=== PATIENT | male | born 1960 | race Caucasian/White ===

== ENCOUNTER 2018-08-14 12:47 | Inpatient (IN) | payer MEDICARE, OTHER ==
[2018-08-14] MEDS: SODIUM CHLORIDE 0.9% FLUSH 10 ML SOL IV PRN (12:50)
[2018-08-14] MEDS ORDERED: SODIUM CHLORIDE 0.9% 1000ML 1,000 ML IV ONE ×2 (12:59→14:10)
[2018-08-14] MEDS ORDERED: ONDANSETRON HCL 4 MG/2 ML SOL ONE (13:06)
[2018-08-14] MEDS ORDERED: ONDANSETRON HCL 4 MG/2 ML SOL IV ONE (13:08)
[2018-08-14 13:40] LABS: BASOPHILS % (AUTO) 1 % (0-3); EOSINOPHILS % (AUTO) 0 % (0-9); HEMATOCRIT 53 % (39-53); LYMPHOCYTES % (AUTO) 8.1 % (10-50); MEAN CORPUSCULAR HEMOGLOBIN 29.3 pg (27.0-32.0); MEAN CORPUSCULAR HGB CONC 31.9 gm/dl (32.0-36.0); MEAN CORPUSCULAR VOLUME 92 fL (80-100); NEUTROPHILS % (AUTO) 88.3 % (37-80)
[2018-08-14 13:51] LABS: ESTIMATED AVE GLU 355 mg/dl (91-125); HEMOGLOBIN A1C > 14.0 % (4.8-6.0)
[2018-08-14 13:54] LABS: ALBUMIN 3.9 gm/dl (3.4-5.0); ALKALINE PHOSPHATASE 120 IU/L (46-116); ALT 45 IU/L (14-63); AST 24 IU/L (15-37); BILIRUBIN,TOTAL 0.5 mg/dl (0.2-1.0); BLOOD UREA NITROGEN 25 mg/dl (7-18); CALCIUM 9.5 mg/dl (8.5-10.1); CARBON DIOXIDE 10.9 mEq/L (21-32); CHLORIDE 87 mMol/L (98-107); MAGNESIUM 1.9 mg/dl (1.8-2.4); POTASSIUM 5.5 mMol/L (3.5-5.1); TOTAL PROTEIN 8.3 gm/dl (6.4-8.2)
[2018-08-14 13:56] LABS: GLUCOSE 583 mg/dl (74-106); SODIUM 123 mMol/L (136-145)
[2018-08-14] MEDS ORDERED: INSULIN HUMAN REGULAR 100 U/ML SOL IV ONE (13:59)
[2018-08-14] MEDS ORDERED: INSULIN HUMAN REGULAR 100 U/ML SOL ONE (14:03)
[2018-08-14 14:13] LABS: APPEARANCE,URINE Clear; BILIRUBIN,URINE 1+ (NEGATIVE); COLOR,URINE Yellow; GLUCOSE, URINE (UA) 2+ (NEGATIVE); KETONES,URINE 4+ (NEGATIVE); LEUKOCYTE ESTERASE ,URINE NEGATIVE (NEGATIVE); NITRATE,URINE NEGATIVE (NEGATIVE); OCCULT BLOOD,URINE TRACE LYSED (NEG-TRACE); UROBILINOGEN,URINE 0.2 (0.2-1.0 EU)
[2018-08-14 14:21] LABS: ICTOTEST,URINE NEGATIVE (NEGATIVE)
[2018-08-14 14:36] LABS: BACTERIA TRACE (< 1+); CRYSTALS NEGATIVE (0-3 AVE/HPF); EPITHELIAL CELLS NEGATIVE (SQUAMOUS); RBC,URINE NEGATIVE (0-3AV/HPF); WBC,URINE NEGATIVE (0-5AV/HPF)
[2018-08-14] MEDS ORDERED: POTASSIUM CHLORIDE 2 MEQ/ML SOL IV ONE ×2 (17:33→19:42)
[2018-08-14] MEDS: INSULIN HUMAN REGULAR 100 U/ML SOL SC SCH ×3 (18:26→21:46)
[2018-08-14] MEDS: ONDANSETRON 4 MG ODT BU PRN (18:26)
[2018-08-14] MEDS: SODIUM CHLORIDE/KCL 20MEQ 1,000 ML IV SCH ×2 (18:27→19:54)
[2018-08-14 20:54] LABS: CARBON DIOXIDE 8.6 mEq/L (21-32); CREATININE 1.26 mg/dl (0.80-1.30)
[2018-08-14 20:56] LABS: POTASSIUM 6.1 mMol/L (3.5-5.1)
[2018-08-14] MEDS: SODIUM CHLORIDE 0.9% 1000ML 1,000 ML IV SCH (21:20)
[2018-08-14] MEDS ORDERED: INSULIN HUMAN REGULAR 100 U/ML SOL SC ONE (23:49)
[2018-08-15] MEDS: ONDANSETRON 4 MG ODT BU PRN ×5 (00:13→23:00)
[2018-08-15] MEDS ORDERED: INSULIN HUMAN REGULAR 100 U/ML SOL SC ONE ×2 (02:04→04:22)
[2018-08-15] MEDS: SODIUM CHLORIDE 0.9% 1000ML 1,000 ML IV SCH ×2 (02:24→10:00)
[2018-08-15] MEDS: LEVOTHYROXINE SODIUM 50 MCG TAB PO SCH (06:45)
[2018-08-15 07:38] LABS: HEMATOCRIT 50 % (39-53); HEMOGLOBIN 16.4 gm/dl (13.5-17.7); MEAN CORPUSCULAR HEMOGLOBIN 29.7 pg (27.0-32.0); MEAN CORPUSCULAR HGB CONC 32.5 gm/dl (32.0-36.0); MEAN CORPUSCULAR VOLUME 91 fL (80-100)
[2018-08-15 07:43] LABS: CALCIUM 7.4 mg/dl (8.5-10.1); CARBON DIOXIDE 11.3 mEq/L (21-32); CREATININE 1.15 mg/dl (0.80-1.30); POTASSIUM 4.3 mMol/L (3.5-5.1); THYROID STIMULATING HORMONE 0.633 uIU/ml (0.358-3.740)
[2018-08-15 07:55] LABS: BAND NEUTROPHILS % (MANUAL) 9 %; BASOPHILS % (MANUAL) 0 % (0-3); EOSINOPHILS % (MANUAL) 0 % (0-9); LYMPHOCYTES % (MANUAL) 14 % (10-50); MONOCYTES % (MANUAL) 2 % (0-12); NEUTROPHILS % (MANUAL) 75 % (37-80); NORMAL RBCS PRESENT
[2018-08-15] MEDS ORDERED: DEXTROSE/SALINE 0.45% 1,000 ML IV SCH (08:15)
[2018-08-15 08:36] LABS: MAGNESIUM 1.9 mg/dl (1.8-2.4)
[2018-08-15 08:49] LABS: ABG PH 7.23 (7.35-7.45)
[2018-08-15] MEDS ORDERED: ASPIRIN EC 81 MG PO SCH (09:00)
[2018-08-15] MEDS ORDERED: SODIUM CHLORIDE 0.9% 500 ML 500 ML IV ONE (09:22)
[2018-08-15] MEDS ORDERED: INSULIN HUMAN REGULAR 100 U/ML SOL ONE (09:22)
[2018-08-15] MEDS: INSULIN HUMAN REGULAR 500 U in SODIUM CHLORIDE 0.9% 500 ML 500 ML IV SCH (09:41)
[2018-08-15] MEDS: PROMETHAZINE HYDROCHLORIDE 25 MG/ML SOL IV PRN ×3 (09:59→20:27)
[2018-08-15] MEDS: SODIUM CHLORIDE 0.9% FLUSH 10 ML SOL IV PRN ×2 (09:59→16:20)
[2018-08-15] MEDS: LISINOPRIL 20 MG TAB PO SCH (10:04)
[2018-08-15 10:55] LABS: CALCIUM 7.3 mg/dl (8.5-10.1); CARBON DIOXIDE 10.3 mEq/L (21-32); POTASSIUM 3.9 mMol/L (3.5-5.1)
[2018-08-15] MEDS ORDERED: SODIUM CHLORIDE/KCL 20MEQ 1,000 ML IV SCH (11:30)
[2018-08-15] MEDS ORDERED: SODIUM CHLORIDE/KCL 20MEQ 1,000 ML IV ONE (12:14)
[2018-08-15 12:45] LABS: CALCIUM 7.6 mg/dl (8.5-10.1); CARBON DIOXIDE 10.5 mEq/L (21-32); CREATININE 0.98 mg/dl (0.80-1.30); POTASSIUM 3.6 mMol/L (3.5-5.1)
[2018-08-15] MEDS ORDERED: DEXTROSE/SALINE 0.45/KCL 20MEQ 1,000 ML/1,000 ML SOL IV SCH (13:15)
[2018-08-15 15:02] LABS: CALCIUM 7.5 mg/dl (8.5-10.1); CARBON DIOXIDE 14.1 mEq/L (21-32); CREATININE 0.92 mg/dl (0.80-1.30)
[2018-08-15 16:40] LABS: CALCIUM 7.3 mg/dl (8.5-10.1); CREATININE 0.9 mg/dl (0.80-1.30)
[2018-08-15] MEDS ORDERED: CALCIUM GLUCONATE 10% 1,000 MG in SODIUM CHLORIDE 0.9% 100 ML 100 ML IV ONE (17:19)
[2018-08-15] MEDS ORDERED: SODIUM CHLORIDE 0.9% 100 ML 100 ML IV ONE (17:57)
[2018-08-15] MEDS ORDERED: CALCIUM GLUCONATE 10% 100 MG/ML SOL IV ONE (17:57)
[2018-08-15] MEDS ORDERED: POTASSIUM CHLORIDE 2 MEQ/ML SOL IV ONE ×2 (17:59→22:53)
[2018-08-15] MEDS: DEXTROSE/SALINE 0.9% 1,000 ML with POTASSIUM CHLORIDE 2 MEQ/ML 20 MEQ IV SCH ×2 (18:17→22:59)
[2018-08-15 18:47] LABS: CALCIUM 7.4 mg/dl (8.5-10.1); CARBON DIOXIDE 14.6 mEq/L (21-32); CREATININE 0.91 mg/dl (0.80-1.30); MAGNESIUM 1.7 mg/dl (1.8-2.4); POTASSIUM 3.9 mMol/L (3.5-5.1)
[2018-08-15 20:34] LABS: CALCIUM 7.4 mg/dl (8.5-10.1); CARBON DIOXIDE 14.7 mEq/L (21-32); CREATININE 0.89 mg/dl (0.80-1.30); POTASSIUM 3.8 mMol/L (3.5-5.1)
[2018-08-15 22:00] LABS: APPEARANCE,URINE Clear; BILIRUBIN,URINE 1+ (NEGATIVE); COLOR,URINE Yellow; GLUCOSE, URINE (UA) 2+ (NEGATIVE); KETONES,URINE 4+ (NEGATIVE); LEUKOCYTE ESTERASE ,URINE NEGATIVE (NEGATIVE); NITRATE,URINE NEGATIVE (NEGATIVE); OCCULT BLOOD,URINE NEGATIVE (NEG-TRACE); PH,URINE 5.5; UROBILINOGEN,URINE 0.2 (0.2-1.0 EU)
[2018-08-15 22:13] LABS: ICTOTEST,URINE NEGATIVE (NEGATIVE); RBC,URINE NEG (0-3AV/HPF); WBC,URINE 0-1 (0-5AV/HPF)
[2018-08-15 22:14] LABS: BACTERIA NEGATIVE (< 1+); CRYSTALS NEGATIVE (0-3 AVE/HPF); EPITHELIAL CELLS NEGATIVE (SQUAMOUS)
[2018-08-15 22:47] LABS: ALBUMIN 2.5 gm/dl (3.4-5.0); BILIRUBIN,DIRECT 0.1 mg/dl (0.0-0.2); BILIRUBIN,TOTAL 0.2 mg/dl (0.2-1.0); CALCIUM 7.5 mg/dl (8.5-10.1); CREATININE 0.85 mg/dl (0.80-1.30); POTASSIUM 3.3 mMol/L (3.5-5.1); TOTAL PROTEIN 5.6 gm/dl (6.4-8.2)
[2018-08-15 22:49] LABS: CARBON DIOXIDE 15.4 mEq/L (21-32)
[2018-08-15] MEDS ORDERED: METOCLOPRAMIDE HYDROCHLORIDE 5 MG/ML SOL IV ONE (23:33)
[2018-08-16] MEDS ORDERED: PIPERACILLIN/TAZOBACT 3.375 GM 3.375 GM in SODIUM CHLORIDE 0.9% 100 ML 100 ML IV ONE (01:00)
[2018-08-16] MEDS ORDERED: PIPERACILLIN/TAZOBACT 3.375 GM PDS IV ONE (01:16)
[2018-08-16] MEDS ORDERED: SODIUM CHLORIDE 0.9% 100 ML 100 ML IV ONE (01:17)
[2018-08-16] MEDS: PROMETHAZINE HYDROCHLORIDE 25 MG/ML SOL IV PRN ×4 (01:33→14:00)
[2018-08-16 02:34] LABS: CREATININE 0.89 mg/dl (0.80-1.30); POTASSIUM 3.6 mMol/L (3.5-5.1)
[2018-08-16 02:38] LABS: CARBON DIOXIDE 15.4 mEq/L (21-32)
[2018-08-16] MEDS ORDERED: POTASSIUM CHLORIDE 2 MEQ/ML SOL IV ONE (04:30)
[2018-08-16] MEDS: DEXTROSE/SALINE 0.9% 1,000 ML with POTASSIUM CHLORIDE 2 MEQ/ML 20 MEQ IV SCH (04:34)
[2018-08-16] MEDS: ONDANSETRON 4 MG ODT BU PRN (04:35)
[2018-08-16 04:39] LABS: CALCIUM 6.8 mg/dl (8.5-10.1); CARBON DIOXIDE 15.7 mEq/L (21-32); CREATININE 0.87 mg/dl (0.80-1.30); POTASSIUM 3.8 mMol/L (3.5-5.1)
[2018-08-16] MEDS ORDERED: INSULIN HUMAN REGULAR 100 U/ML SOL ONE (05:35)
[2018-08-16] MEDS: LEVOTHYROXINE SODIUM 50 MCG TAB PO SCH (06:22)
[2018-08-16] MEDS: INSULIN HUMAN REGULAR 500 U in SODIUM CHLORIDE 0.9% 500 ML 500 ML IV SCH (06:27)
[2018-08-16 06:57] LABS: BASOPHILS % (AUTO) 1 % (0-3); EOSINOPHILS % (AUTO) 0 % (0-9); HEMATOCRIT 48 % (39-53); HEMOGLOBIN 15.7 gm/dl (13.5-17.7); LYMPHOCYTES % (AUTO) 3.9 % (10-50); MEAN CORPUSCULAR HEMOGLOBIN 29.7 pg (27.0-32.0); MEAN CORPUSCULAR VOLUME 90 fL (80-100); MONOCYTES % (AUTO) 6.6 % (0-12); NEUTROPHILS % (AUTO) 88.9 % (37-80)
[2018-08-16 07:06] LABS: ESTIMATED AVE GLU > 355 mg/dl (91-125); HEMOGLOBIN A1C > 14.0 % (4.8-6.0)
[2018-08-16 07:13] LABS: ALBUMIN 2.3 gm/dl (3.4-5.0); ALKALINE PHOSPHATASE 79 IU/L (46-116); ALT 36 IU/L (14-63); AST 30 IU/L (15-37); BILIRUBIN,TOTAL 0.2 mg/dl (0.2-1.0); BLOOD UREA NITROGEN 23 mg/dl (7-18); CALCIUM 6.8 mg/dl (8.5-10.1); CHLORIDE 105 mMol/L (98-107); CHOL/HDL RATIO 10.3 (2.8-6.4); CHOLESTEROL 226 mg/dl (120-200); CREATININE 0.91 mg/dl (0.80-1.30); GLUCOSE 264 mg/dl (74-106); HDL CHOLESTEROL 22 mg/dl (40-60); POTASSIUM 3.7 mMol/L (3.5-5.1); SODIUM 132 mMol/L (136-145)
[2018-08-16 07:18] LABS: CARBON DIOXIDE 13.1 mEq/L (21-32)
[2018-08-16 08:58] LABS: ABG PH 7.31 (7.35-7.45)
[2018-08-16] MEDS ORDERED: PROMETHAZINE HYDROCHLORIDE 25 MG/ML SOL ONE (09:44)
[2018-08-16] MEDS: LISINOPRIL 20 MG TAB PO SCH (09:56)
[2018-08-16] MEDS ORDERED: SODIUM CHLORIDE 0.9% 1000ML 1,000 ML IV SCH (10:00)
[2018-08-16 11:24] VITALS: RESP 20
[2018-08-16] MEDS ORDERED: NOVOLOG FLEXPEN SC ONE ×2 (12:33→14:20)
[2018-08-16 14:17] VITALS: BP 149/73; PULSE 105; TEMP 98.2; O2SAT 95
[2018-08-16] MEDS ORDERED: NOVOLOG 70/30 FLEXPEN SC ONE (14:21)
[2018-08-18 10:20] LABS: *PARATHYROID HORMONE NO MIN 71.7 pg/mL (14.0-72.0)
== END 2018-08-16 14:45 | disposition short-term general hospital (02) | DRG 638 ==
LOC: ED 12:47 → UNDOADMIN 15:44 → ACUTE CARE 15:44
PROVIDERS: ADMIT Family Medicine; ATTEND Family Medicine
DX: E11.10 Type 2 diabetes mellitus with ketoacidosis without coma (principal); E87.2 Acidosis; I10 Essential (primary) hypertension; D72.829 Elevated white blood cell count, unspecified; E11.8 Type 2 diabetes mellitus with unspecified complications
CPT/HCPCS: 36415; 36600; 71045; 80048; 80053; 80061; 80076; 81001; 82009; 82150; 82803; 82962; 83036; 83735; 84100; 84132; 84443; 85007; 85025; 85027; 87040; 93012; 96365; 96366; 96374; 96375; 99222; 99231; 99285; J0610; J1815; J2405; J2543; J2550; J2765; J3480; A9270-GY